=== PATIENT | male | born 1980 | race Caucasian/White ===

== ENCOUNTER 2021-05-04 08:40 | Outpatient (CLI) | payer OTHER, SELFPAY ==
--- NOTE | ~2021-05-04 | MR_ITS ---
EXAMINATION: MR lumbar spine wo con EXAM DATE: 05/04/2021 09:41 INDICATION: M54.9 - Dorsalgia, unspecified. TECHNIQUE: Multi-sequential, multiplanar MR images of the lumbar spine were obtained without contrast . Sagittal T1, T2, T2 fat saturation images. Axial T2 weighted images. There is no prior study for comparison. FINDINGS: There is 3 mm retrolisthesis L5 on S1 with mild to moderate disc disease at this level. The vertebral bodies are otherwise aligned. The vertebral body and disc heights are otherwise well maint ained. The conus medullaris terminates at the L1 level and has normal signal intensity and morphology . There are no suspicious marrow signal abnormalities. Paraspinal soft tissue is unremarkable. Level by level evaluation: L1-L2: Disc does not extend beyond the endplate margin. Facet arthropathy: Mild. Neural foraminal stenosis: No stenosis. Central canal stenosis: No stenosis. L2-L3: Disc does not extend beyond the endplate margin. Facet arthropathy: Mild. Neural foraminal stenosis: No stenosis. Central canal stenosis: No stenosis. L3-L4: Disc does not extend beyond the endplate margin. Facet arthropathy: Mild to moderate. Neural foraminal stenosis: No stenosis. Central canal stenosis: No stenosis. L4-L5: There is a mild diffuse disc bulge, superimposed small left central extrusion, inferior migrat ion causing mild/moderate mass effect on traversing left S1 nerve root in the lateral recess Facet arthropathy: Moderate. Neural foraminal stenosis: Mild to moderate bilateral. Central canal stenosis: Mild. L5-S1: There is a mild diffuse disc bulge. Facet arthropathy: Mild. Neural foraminal stenosis: Mild to moderate bilateral. Central canal stenosis: Mild. IMPRESSION: 1. Mild to moderate lower lumbar spondylosis. 2. L4-5 small left central extrusion causing some mass effect on traversing nerve root. Reviewed, dictated and finalized at location A. [employer] IMPRESSION: 1. Mild to moderate lower lumbar spondylosis. 2. L4-5 small left central extrusion causing some mass effect on traversing ne rve root.
== END 2021-05-04 08:41 | disposition home or self-care (01) ==
LOC: ANHIMG 08:41
PROVIDERS: PCP Internal Medicine; Visit Provider Clinical Nurse Specialist
DX: M47.896 Other spondylosis, lumbar region (principal); M51.26 Other intervertebral disc displacement, lumbar region
CPT/HCPCS: 72148